=== PATIENT | female | born 1960 | race Caucasian/White ===

== ENCOUNTER 2017-07-15 08:23 | Emergency (ER) | payer OTHER ==
[2017-07-15 08:49] VITALS: BP 122/82
--- NOTE | 2017-07-15 09:41 | UC ---
Complaint Female HPI - HPI Summary HPI Summary: 56 yo WF p/w suprapubic pressure x 2-3 days, associated with urinary frequency and urgency, denies f/c - History Of Current Complaint Chief Complaint: UCGU Stated Complaint: URINARY Time Seen by Provider: 07/15/17 09:02 Hx Obtained From: Patient Hx Last Menstrual Period: n/a ?: Yes Onset/Duration: Sudden Onset Timing: Constant Severity Initially: Moderate Severity Currently: Moderate Pain Intensity: 5 Pain Scale Used: 0-10 Numeric Character: Sharp - Allergies/Home Medications Allergies/Adverse Reactions: Allergies Allergy/AdvReac Type Severity Reaction Status Date / Time Sulfa (Sulfonamide Allergy Unknown Verified 07/15/17 08:42 Antibiotics) Reaction Details PMH/Surg Hx/FS Hx/Imm Hx Previously Healthy: Yes Cardiovascular History: Hypertension - Surgical History Surgical History: Yes Surgery Procedure, Year, and Place: Right Knee Arthroscopy, 2016, [place]; Left Shoulder, 2015, [place]; Tonsillectomy as a child - Family History Known Family History: Positive: Cardiac Disease, Hypertension - Social History Alcohol Use: None Substance Use Type: None Smoking Status (MU): Never Smoked Tobacco Review of Systems Constitutional: Negative Skin: Negative Eyes: Negative ENT: Negative Respiratory: Negative Cardiovascular: Negative Gastrointestinal: Negative Genitourinary: Frequency, Urgency, Other - suprapubic pain Motor: Negative Neurovascular: Negative Musculoskeletal: Negative Neurological: Negative Psychological: Negative All Other Systems Reviewed And Are Negative: Yes Physical Exam Triage Information Reviewed: Yes Appearance: Well-Appearing Vital Signs: Initial Vital Signs Temp 37.2 C 07/15/17 08:39 Pulse 82 07/15/17 08:39 Resp 16 07/15/17 08:39 BP 122/82 07/15/17 08:39 Pulse Ox 99 07/15/17 08:39 Eye Exam: Normal ENT Exam: Normal Dental Exam: Normal Neck: Positive: Supple Respiratory Exam: Normal Cardiovascular Exam: Normal Cardiovascular: Positive: RRR Abdomen Description: Positive: Other: - suprapubic tenderness. Negative: CVA Tenderness (R), CVA Tenderness (L) Musculoskeletal Exam: Normal Neurological Exam: Normal Neurological: Positive: Alert Psychological Exam: Normal Skin Exam: Normal Complaint Female Dx - Course Course Of Treatment: UA - 3+ blood and signs of UTI, will tx with macrobid - Differential Dx/Diagnosis Provider Diagnoses: acute cystitis Discharge - Sign-Out/Discharge Documenting (check all that apply): Discharge/Admit/Transfer - Discharge Plan Condition: Stable Disposition: HOME Prescriptions: Nitrofurantoin Monohyd/M-Cryst [Macrobid 100 mg Capsule] 100 mg PO BID 7 Days # 14 cap Patient Education Materials: Urinary Tract Infection in Women (ED) Referrals: Keara Craft MD [Primary Care Provider] - - Billing Disposition and Condition Condition: STABLE Disposition: HOME
== END 2017-07-15 09:30 | disposition home or self-care (01) ==
LOC: UCCORT 08:23
DX: N30.00 Acute cystitis without hematuria (principal); Z88.2 Allergy status to sulfonamides
CPT/HCPCS: 81003; 99212; G0463

== ENCOUNTER 2017-07-23 08:54 | Emergency (ER) | payer OTHER ==
[2017-07-23 09:17] VITALS: BP 139/52
[2017-07-23] MEDS ORDERED: Triamcinolone Acetonide* 40 MG/ML 1 ML VIAL IM ONE (09:48)
--- NOTE | 2017-07-23 09:52 | UC ---
Skin Complaint HPI - HPI Summary HPI Summary: 56 yo female with pruritic rash x 1 day worse on arms/legs has been doing yard work seen here 2 weeks ago with hematuria - History of Current Complaint Chief Complaint: UCRash Time Seen by Provider: 07/23/17 09:22 Stated Complaint: SKIN COMPLAINT Hx Obtained From: Patient Hx Last Menstrual Period: n/a Onset/Duration: Gradual Onset, Lasting Hours Timing: Constant Onset Severity: Mild Current Severity: Mild Pain Intensity: 0 Pain Scale Used: 0-10 Numeric Location: Diffuse Character: Pruritus, Redness, Raised Aggravating Factor(s): Nothing Alleviating Factor(s): Nothing - Allergy/Home Medications Allergies/Adverse Reactions: Allergies Allergy/AdvReac Type Severity Reaction Status Date / Time Sulfa (Sulfonamide Allergy Unknown Verified 07/23/17 09:09 Antibiotics) Reaction Details Home Medications: Home Medications Triamterene/HCTZ 37.5-25 MG* [Dyazide CAP*] 1 cap PO DAILY 07/23/17 [History Confirmed 07/23/17] Review of Systems Constitutional: Negative Skin: Rash Eyes: Negative ENT: Negative Respiratory: Negative Cardiovascular: Negative Gastrointestinal: Negative Genitourinary: Negative Motor: Negative Neurovascular: Negative Musculoskeletal: Negative Neurological: Negative Psychological: Negative Is Patient Immunocompromised?: No All Other Systems Reviewed And Are Negative: Yes PMH/Surg Hx/FS Hx/Imm Hx Previously Healthy: Yes - Surgical History Surgical History: Yes Surgery Procedure, Year, and Place: Right Knee Arthroscopy, 2016, [place]; Left Shoulder, 2015, [place]; Tonsillectomy as a child - Family History Known Family History: Positive: Cardiac Disease, Hypertension - Social History Alcohol Use: None Substance Use Type: None Smoking Status (MU): Never Smoked Tobacco Physical Exam Triage Information Reviewed: Yes Appearance: Well-Appearing, No Pain Distress, Well-Nourished Vital Signs: Initial Vital Signs Temp 97.9 F 07/23/17 09:12 Pulse 99 07/23/17 09:12 Resp 18 07/23/17 09:12 BP 139/52 07/23/17 09:12 Pulse Ox 97 07/23/17 09:12 Vital Signs Reviewed: Yes Eyes: Positive: Conjunctiva Clear ENT: Positive: Other - no intraoral lesions. Negative: Hearing grossly normal, Nasal congestion, Nasal drainage, Trismus, Muffled voice, Dental tenderness Neck: Positive: Supple, Nontender Respiratory: Positive: Lungs clear, Normal breath sounds, No respiratory distress Cardiovascular: Positive: RRR, No Murmur Musculoskeletal: Positive: ROM Intact, No Edema Neurological: Positive: Alert Psychological Exam: Normal Skin Exam: Other - muliple red papules arms and legs some in linear array Course/Dx - Course Course Of Treatment: ua-(+1) rbcs - Diagnoses Provider Diagnoses: contact dermatitis. microscopic hematuria Discharge - Sign-Out/Discharge Documenting (check all that apply): Discharge/Admit/Transfer - Discharge Plan Condition: Stable Disposition: HOME Patient Education Materials: Contact Dermatitis (ED), Hematuria (ED) Referrals: Keara Craft MD [Primary Care Provider] - 4 Days - Billing Disposition and Condition Condition: STABLE Disposition: HOME
== END 2017-07-23 10:22 | disposition home or self-care (01) ==
LOC: UCCORT 08:54
DX: L25.9 Unspecified contact dermatitis, unspecified cause (principal); R31.29 Other microscopic hematuria; Z88.2 Allergy status to sulfonamides
CPT/HCPCS: 81003; 96372; 99212; G0463; J3301

== ENCOUNTER 2019-01-23 08:55 | Emergency (ER) | payer OTHER ==
--- OUTSIDE RECORDS SUMMARY | 2019-01-23 09:06 | XMS REPORT | Continuity of Care Document ---
:1960 External Reference #:[id number] Author Name Keara Craft MD Address [address] [place] [id number] Care Team Providers Name Role Phone Keara Craft MD - Family Medicine Care Team Information Planer Tailer [phone] Problems Active Problems Provider Date Benign essential hypertension Onset: 03/27/2015 Edema Keara Craft MD Onset: 01/14/2015 Skin sensation disturbance Keara Craft MD Onset: 01/14/2015 Psoriasis Keara Craft MD Onset: 03/27/2015 Overweight Keara Craft MD Onset: 03/27/2015 Derangement of medial meniscus David Mendez M.D. Onset: 05/25/2016 Old tear of posterior horn of medial Hilda Ruano PA Onset: 07/29/2016 meniscus Localized, primary osteoarthritis Hilda Ruano PA Onset: 07/29/2016 Hematuria syndrome Jake Lobo FNP Onset: 07/28/2017 Note: Lab: 07/24/17 - Urine Dipstick Lab: 07/24/17 - Urine Culture negative Verruca vulgaris Keara Craft MD Onset: 11/16/2017 Screening for malignant neoplasm of colon John Felder MD Onset: 2017 Constipation John Felder MD Onset: 01/09/2018 Other hemorrhoids John Felder MD Onset: 01/09/2018 Adjustment disorder with depressed mood Keara Craft MD Onset: 11/02/2018 Social History Type Date Description Comments Sex Unknown Tobacco Use Start: Unknown Never Smoked Cigarettes Smoking Status Reviewed: 12/18/18 Never Smoked Cigarettes ETOH Use Currently consumes alcohol < 2 dr/yr Tobacco Use Start: Unknown Patient has never smoked Recreational Drug Use Never Used Drugs Exercise Type/Frequency Does not exercise Allergies, Adverse Reactions, Alerts Active Allergies Reaction Severity Comments Date Sulfa Drugs 01/14/2015 Medications Active Medications SIG Qnty Indications Ordering Provider Date Fluoxetine HCL 1 by mouth every 30caps F43.21 Keara Craft, 11/02/2018 (PMDD) night 20mg Capsules Lorazepam 1 tablet by mouth 60tabs Keara Craft, 10/03/2018 1mg Tablets 3x/day as needed for acute grief reaction Reference #: [id number] Triamterene/Hydrochl take one tablet by 90tabs R03.0 Keara Craft, 03/27 orothiazide mouth once daily 75-50mg in the morning Tablets Ibuprofen take one tablet by S46.012A Unknown 800mg mouth every 8 Tablets hours as needed History Medications Amoxicillin/Clavulanate 1 by mouth 20tabs Keara Craft, 11/16/2018 - Potassium twice a day 12/14/2018 875-125mg Tablets Amoxicillin/Clavulanate 1 by mouth 20tabs Keara Craft, 09/05/2018 - Potassium twice a day 11/02/2018 875-125mg Tablets Immunizations Description No Information Available Vital Signs Date Vital Result Comment 12/14/2018 9:09am BP Systolic 120 mmHg BP Diastolic 74 mmHg Body Temperature 98.3 F Heart Rate 83 /min Respiratory Rate 18 /min Height 64.75 inches 5'4.75" Weight 234.00 lb BMI (Body Mass Index) 39.2 kg/m2 BSA (Body Surface Area) 2.11 m2 [place] body weight in kilograms 56 kg O2 % BldC Oximetry 97 % 11/02/2018 3:11pm BP Systolic 126 mmHg BP Diastolic 80 mmHg Height 65.25 inches 5'5.25" Weight 233.00 lb BMI (Body Mass Index) 38.5 kg/m2 BSA (Body Surface Area) 2.12 m2 [place] body weight in kilograms 57 kg Results Test Date Facility Test Result H/L Range Note Urine Dipstick 12/14/2018 [facility] Ua Color yellow Yellow Ua Clarity clear Clear Ua Leuko negative Negative Ua Nitrite negative Negative Ua Urobilinogen 0.2 0.2 - 1.0 E.U./dL Ua Protein negative Negative Ua PH 7.5 6.5-7.5 Ua Blood negative Negative Ua Specific [place] 1.015 1.010-1.030 Ua Ketones negative Negative Ua Bilirubin negative Negative Ua Glucose negative Negative Urine Dipstick 11/02/2018 [facility] Ua Leuko - Negative Ua Nitrite - Negative Ua Urobilinogen .2 0.2 - 1.0 E.U./dL Ua Protein - Negative Ua PH 7 6.5-7.5 Ua Blood 1+ High Negative Ua Specific [place] 1.015 1.010-1.030 Ua Ketones - Negative Ua Bilirubin - Negative Ua Glucose - Negative Procedures Date Code Description Status 12/14/2018 [id number] Mammogram Completed 11/16/2018 [id number] Colonoscopy Completed 11/02/2018 65157 Brief Emotional/Behav Assessment W/ Scoring Doc Per Completed Standard Inst 03/06/2017 [id number] Bone Mineral Density Test Completed Medical Devices Description No Information Available Encounters Type Date Location Provider Dx Diagnosis Office Visit 12/14/2018 [facility] Keara Craft, Z00.00 Encntr for general 9:00a Juancho YEPEZ MD adult medical exam w/o abnormal findings F43.21 Adjustment disorder with depressed mood K57.30 Dvrtclos of lg int w/o perforation or abscess w/o bleeding N60.02 Solitary cyst of left breast Office Visit 11/02/2018 3:00p [facility] Keara Craft F43.21 Adjustment Juancho YEPEZ MD disorder with depressed mood Assessments Date Code Description Provider 12/14/2018 Z00.00 Encounter for general adult medical examination Keara Craft MD without abnormal findings 12/14/2018 F43.21 Adjustment disorder with depressed mood Keara Craft MD 12/14/2018 K57.30 Diverticulosis of large intestine without Keara Craft MD perforation or abscess without bleeding 12/14/2018 N60.02 Solitary cyst of left breast Keara Craft MD 11/02/2018 F43.21 Adjustment disorder with depressed mood Keara Craft MD Plan of Treatment Future Appointment(s):06/10/2019 8:30 am - Keara Craft MD at [facility] Juancho YEPEZ12/14/2018 - Keara Craft MDZ00.00 Encounter for general adult medical examination without abnormal findingsComments:INCREASE EXERCISE; WORK TOWARDS IDEAL WEIGHT;DAILY SUNSCREEN FOR SKIN CANCER PREVENTION;CALCIUM INTAKE DISCUSSEDPAP/PELVIC : UP TO DATE; MAMMOGRAM AND SONOGRAM LEFT BREAST WILL BE ORDERED FOR AFTER 12/22/18; LABS ORDERED FASTING;[facility] PR[facility]: IN YYCJEO33.21 Adjustment disorder with depressed moodComments:YOU ARE BETTER; I'M GLAD YOU WENT TO [place]. PLAN MORE TRIPS AND GO!LORAZEPAM NEEDED.Follow up:4 MOK57.30 Diverticulosis of large intestine without perforation or abscess without bleedingComments:FROM YOUR COLONOSCOPY;BASICALLY , AVOID [id number] Solitary cyst of left breastComments:PLAN ABOVE Functional Status Functional Condition Comment Date Status Glasses Active Mental Status Description No Information Available Referrals Description No Information Available
[2019-01-23 09:23] VITALS: BP 131/62
--- NOTE | 2019-01-23 10:46 | UC ---
Respiratory Complaint HPI - HPI Summary HPI Summary: Patient is a 58-year-old female presenting with complaint of SOB at night for the past 3 nights and cough x1 month. Patient states she wakes up and feels like she "cant catch her breath." Notes that it lasts a few minutes and improves some with mouth breathing. Notes mild dry cough. Notes post nasal drip and h/o seasonal allergies. Denies SOB during the day. Denies wheezing. Denies chest pain. Denies fever and chills. Denies decreased appetite and fatigue. Patient is not a smoker. Patient states she is concerned for cancer because her in September from cancer that initially presented as a mild dry cough. Patient notes she has been in mourning since and "cries every day." States she takes ativan as needed "a couple times a week" for anxiety since her 's passing. - History of Current Complaint Chief Complaint: UCGeneralIllness Stated Complaint: COUGH,SOB Hx Obtained From: Patient Hx Last Menstrual Period: n/a Pain Intensity: 0 - Allergies/Home Medications Allergies/Adverse Reactions: Allergies Allergy/AdvReac Type Severity Reaction Status Date / Time Sulfa (Sulfonamide Allergy Unknown Verified 01/23/19 09:15 Antibiotics) Reaction Details Home Medications: Home Medications LORazepam [Ativan 1 MG TAB] 1 tab PO ONCE PRN 01/23/19 [History Confirmed ] PMH/Surg Hx/FS Hx/Imm Hx Previously Healthy: Yes - Surgical History Surgical History: Yes Surgery Procedure, Year, and Place: Right Knee Arthroscopy, 2016, [place];. Left Shoulder, 2015, [place];. Tonsillectomy as a child - Family History Known Family History: Positive: Cardiac Disease, Hypertension - Social History Alcohol Use: None Substance Use Type: None Smoking Status (MU): Never Smoked Tobacco Review of Systems All Other Systems Reviewed And Are Negative: Yes Constitutional: Positive: Negative ENT: Positive: Nasal Discharge - PND, Sinus Congestion. Negative: Sore Throat, Ear Ache Respiratory: Positive: Shortness Of Breath - at night, Cough - dry Cardiovascular: Positive: Negative Gastrointestinal: Positive: Negative Musculoskeletal: Positive: Negative Neurological: Positive: Negative Psychological: Positive: Anxious, Depressed Physical Exam Triage Information Reviewed: Yes Appearance: Well-Appearing, No Pain Distress, Well-Nourished Vital Signs: Initial Vital Signs Temp 99.6 F 01/23/19 09:16 Pulse 78 01/23/19 09:16 Resp 16 01/23/19 09:16 BP 131/62 01/23/19 09:16 Pulse Ox 97 01/23/19 09:16 Vital Signs Reviewed: Yes Eyes: Positive: Conjunctiva Clear ENT: Positive: Hearing grossly normal, Nasal drainage - PND noted, TMs normal, Uvula midline. Negative: Pharyngeal erythema, Tonsillar swelling, Tonsillar exudate Neck exam: Normal Neck: Positive: Supple, Nontender, No Lymphadenopathy Respiratory Exam: Normal Respiratory: Positive: Lungs clear, Normal breath sounds, No respiratory distress. Negative: Crackles, Rhonchi, Stridor, Wheezing Cardiovascular Exam: Normal Cardiovascular: Positive: RRR Neurological: Positive: Alert Psychological: Positive: Age Appropriate Behavior Skin Exam: Normal Diagnostics - Radiology chest Radiology Interpretation Completed By: Radiologist Summary of Radiographic Findings: IMPRESSION: NO EVIDENCE FOR ACTIVE CARDIOPULMONARY DISEASE. Respiratory Course/Dx - Course Course Of Treatment: Patient CXR negative. Educated on allergies or bronchitis as source of cough. Also discussed anxiety attacks as possible source of SOB at night. Instructed patient to take otc allergy mediation. Instructed patient to follow up with pcp if sob attacks continue or go to ED if they worsen. Patient voiced understanding and agreed with treatment plan. - Differential Dx/Diagnosis Provider Diagnosis: Waking at night short of breath, Persistent dry cough Discharge ED - Sign-Out/Discharge Documenting (check all that apply): Patient Departure All imaging exams completed and their final reports reviewed: Yes - Discharge Plan Condition: Stable Disposition: HOME Prescriptions: Guaifenesin/Pseudoephedrne HCl [Mucinex D ER 1,200-120 mg Tab] 1 each PO DAILY PRN #[id number] tab.er.[id number] PRN Reason: Congestion Patient Education Materials: Dyspnea (ED), Postnasal Drip (DC) Referrals: Keara Craft MD [Primary Care Provider] - If Needed Additional Instructions: As discussed, your chest xray was normal today. You may take mucinex to help reduce mucus production. You may also use Flonase spray and over the counter allergy medication, such as Zyrtec, to help alleviate nasal congestion. Follow up with your primary care doctor if your symptoms do not resolve within 7 days. Go to the Emergency Room if your symptoms worsen, including difficulty breathing , chest pain, and fever. - Billing Disposition and Condition Condition: STABLE Disposition: Home
== END 2019-01-23 11:15 | disposition home or self-care (01) ==
LOC: UCCORT 08:55
DX: R05 Cough (principal); R06.02 Shortness of breath; J34.89 Other specified disorders of nose and nasal sinuses; F41.9 Anxiety disorder, unspecified; Z88.2 Allergy status to sulfonamides; Z79.899 Other long term (current) drug therapy
CPT/HCPCS: 71046; 99212; G0463

== ENCOUNTER 2019-04-30 07:37 | Emergency (ER) | payer OTHER ==
--- OUTSIDE RECORDS SUMMARY | 2019-04-30 08:18 | XMS REPORT | Continuity of Care Document ---
:1960 External Reference #:[id number] Author Name Keara Craft MD Address [address] [place] [id number] Care Team Providers Name Role Phone Keara Craft MD - Family Medicine Care Team Information Gas Fitter [phone] Problems Active Problems Provider Date Benign essential [...] depressed mood Keara Craft MD Onset: 11/02/2018 Disorder of shoulder Keara Craft MD Onset: 02/15/2019 Social History Type Date Description Comments Sex Unknown Tobacco Use Start: Unknown Never Smoked Cigarettes Smoking Status Reviewed: 03/27/19 Never Smoked Cigarettes ETOH Use Currently consumes alcohol < 2 dr/yr Tobacco Use Start: Unknown Patient has never smoked Recreational Drug Use Never Used Drugs Exercise Type/Frequency Does not exercise Allergies, Adverse Reactions, Alerts Active Allergies Reaction Severity Comments Date Sulfa Drugs 01/14/2015 Medications Active Medications SIG Qnty Indications Ordering Date Provider Trazodone HCL 1/2 tablet by 30tabs F43.21 Keara Craft, 02/15/2019 100mg mouth at bedtime MD Tablets for 5 days, then increase to 1 whole tab at bedtime Lorazepam 1 tablet by mouth 60tabs Keara Craft, 10/03/2018 1mg Tablets 3x/day as needed for anxiety Reference #: [id number] Triamterene/Hydrochl take one tablet by 90tabs R03.0 Keara Craft, 03/27 orothiazide mouth once daily 75-50mg in the morning Tablets Ibuprofen take one tablet by 100tabs S46.012A Keara Craft, 800mg mouth every 8 MD Tablets hours with food or snack as needed for pain History Medications Fluoxetine HCL 1 cap by mouth 30caps Keara Craft, 01/10/2019 - (PMDD) every day along 02/15/2019 10mg Capsules with 20 mg dose Fluoxetine HCL 1 cap by mouth 30caps Keara Craft, 01/10/2019 - (PMDD) every day along 02/15/2019 20mg Capsules with the 10 mg dose Amoxicillin/Clavulan 1 by mouth 20tabs Keara Craft, 11/16/2018 - ate Potassium twice a day 12/14/2018 875-125mg Tablets Fluoxetine HCL 1 1/2 by mouth 45caps F43.21 Keara Craft, 11/02/2018 - (PMDD) every night 01/10/2019 20mg Capsules Immunizations Description No Information Available Vital Signs Date Vital Result Comment 03/27/2019 5:20pm BP Systolic Sitting Left Arm 126 mmHg BP Diastolic Sitting Left Arm 76 mmHg Body Temperature 99.1 F Heart Rate 80 /min Respiratory Rate 18 /min Height 64.75 inches 5'4.75" Weight 239.00 lb BMI (Body Mass Index) 40.1 kg/m2 BSA (Body Surface Area) 2.13 m2 [place] body weight in kilograms 56 kg O2 % BldC Oximetry 97 % 02/15/2019 10:44am BP Systolic 130 mmHg BP Diastolic 82 mmHg Body Temperature 98.3 F Heart Rate 69 /min Respiratory Rate 16 /min Height 64.75 inches 5'4.75" Weight 236.00 lb BMI (Body Mass Index) 39.6 kg/m2 BSA (Body Surface Area) 2.12 m2 [place] body weight in kilograms 56 kg O2 % BldC Oximetry 98 % Results Test Acquired Date Facility Test Result H/L Range Note Xray 03/19/2019 [facility] - Radiology Ultrasound, Breast <pending> [address] Unilateral [place], [place] [id number] [phone] Mammography, Screening Bilateral Mammogram <pending> Urine Dipstick 02/15/2019 [facility] Ua Color yellow Yellow Ua Clarity clear Clear Ua Leuko neg Negative Ua Nitrite neg Negative Ua Urobilinogen 3.5 High 0.2 - 1.0 E.U./dL Ua Protein neg Negative Ua PH 6.5 6.5-7.5 Ua Blood pos Negative Ua Specific [place] 1.020 1.010-1.030 Ua Ketones neg Negative Ua Bilirubin neg Negative Ua Glucose neg Negative Urine Dipstick 12/14/2018 [facility] Ua Color yellow Yellow Ua Clarity clear Clear Ua Leuko negative Negative Ua Nitrite negative Negative Ua Urobilinogen 0.2 0.2 - 1.0 E.U./dL Ua Protein negative Negative Ua PH 7.5 6.5-7.5 Ua Blood negative Negative Ua Specific [place] 1.015 1.010-1.030 Ua Ketones negative Negative Ua Bilirubin negative Negative Ua Glucose negative Negative Urine Dipstick 11/02/2018 [facility] Ua Leuko - Negative Ua Nitrite - Negative Ua Urobilinogen .2 0.2 - 1.0 E.U./dL Ua Protein - Negative Ua PH 7 6.5-7.5 Ua Blood 1+ High Negative Ua Specific [place] 1.015 1.010-1.030 Ua Ketones - Negative Ua Bilirubin - Negative Ua Glucose - Negative Procedures Date Code Description Status 12/14/2018 18723 Brief Emotional/Behav Assessment W/ Scoring Doc Per Completed Standard Inst 12/14/2018 [id number] Mammogram Completed 11/16/2018 [id number] Colonoscopy Completed 11/02/2018 44931 Brief Emotional/Behav Assessment W/ Scoring Doc Per Completed Standard Inst 03/06/2017 [id number] Bone Mineral Density Test Completed Medical Devices Description No Information Available Encounters Type Date Location Provider Dx Diagnosis Office Visit 03/27/2019 [facility] Keara Craft, S23.41xA Sprain of ribs, 4:30p Juancho YEPEZ MD initial encounter F43.21 Adjustment disorder with depressed mood Office Visit 02/15/2019 10:45a [facility] Keara Craft F43.21 Adjustment Juancho YEPEZ MD disorder with depressed mood R07.89 Other chest pain M75.42 Impingement syndrome of left shoulder B07.9 Viral wart, unspecified Office Visit 12/14/2018 9:00a [facility] Keara Craft, Z00.00 Encntr for Juancho YEPEZ MD general adult medical exam w/o abnormal findings F43.21 Adjustment disorder with depressed mood K57.30 Dvrtclos of lg int w/o perforation or abscess w/o bleeding N60.02 Solitary cyst of left breast Office Visit 11/02/2018 3:00p [facility] Keara Craft, F43.21 Adjustment Juancho YEPEZ MD disorder with depressed mood Assessments Date Code Description Provider 03/27/2019 S23.41xA Sprain of ribs, initial encounter Keara Craft MD 03/27/2019 F43.21 Adjustment disorder with depressed mood Keara Craft MD 02/15/2019 F43.21 Adjustment disorder with depressed mood Keara Craft MD 02/15/2019 R07.89 Other chest pain Keara Craft MD 02/15/2019 M75.42 Impingement syndrome of left shoulder Keara Craft MD 02/15/2019 B07.9 Viral wart, unspecified Keara Craft MD 12/14/2018 Z00.00 Encounter for general adult medical Keara Craft MD examination without abnormal findings 12/14/2018 F43.21 Adjustment disorder with depressed mood Keara Craft MD 12/14/2018 K57.30 Diverticulosis of large intestine without Keara Craft MD perforation or abscess without bleeding 12/14/2018 N60.02 Solitary cyst of left breast Keara Craft MD 11/02/2018 F43.21 Adjustment disorder with depressed mood Keara Craft MD Plan of Treatment Future Appointment(s):12/13/2019 9:00 am - Keara Craft MD at [facility] RD06/10/2019 8:30 am - Keara Craft MD at [facility] RD03/27/2019 - Keara Craft, MDS23.41xA Sprain of ribs, initial encounterNew Xrays:Ribs, Unilateral 2 Views, Ordered: 03/27/19Comments:Let's get xrays of ribs on both sides.You can use ibuprofen for the pain as needed, I have renewed this.Follow up:as alnbhnC21.21 Adjustment disorder with depressed moodComments:cont. on current regimen.I renewed your lorazepam.I still think you could benefit from counseling. Functional Status Functional Condition Comment Date Status Glasses Active Mental Status Description No Information Available Referrals Description No Information Available
[2019-04-30 08:26] VITALS: BP 128/82
--- NOTE | 2019-04-30 08:34 | UC ---
Throat Pain/Nasal Malachi HPI - HPI Summary HPI Summary: sinus pain / pressure x 10 days yellow / green nasal discharge, pnd cough , having low grade fever, chills, not improving with otc meds - History of Current Complaint Chief Complaint: UCRespiratory Time Seen by Provider: 04/30/19 08:28 Hx Obtained From: Patient Hx Last Menstrual Period: n/a Onset/Duration: Gradual Onset, Lasting Days - 10, Still Present Severity: Moderate Pain Intensity: 4 Cough: Nonproductive Associated Signs & Symptoms: Positive: Sinus Discomfort, Nasal Discharge, Fever. Negative: Wheezing, Vomiting, Rash - Allergies/Home Medications Allergies/Adverse Reactions: Allergies Allergy/AdvReac Type Severity Reaction Status Date / Time Sulfa (Sulfonamide Allergy Unknown Verified 04/30/19 08:18 Antibiotics) Reaction Details Home Medications: Home Medications Triamterene/HCTZ 37.5-25 MG* [Dyazide CAP*] 1 cap PO DAILY 07/23/17 [History Confirmed 04/30/19] LORazepam [Ativan 1 MG TAB] 1 tab PO ONCE PRN 01/23/19 [History Confirmed ] Amoxicillin/Clavulanate TAB* [Augmentin TAB 875*] 875 mg PO BID #20 tab [Rx] Ibuprofen 800 mg PO DAILY 04/30/19 [History Confirmed 04/30/19] PMH/Surg Hx/FS Hx/Imm Hx Cardiovascular History: Hypertension - Surgical History Surgical History: Yes Surgery Procedure, Year, and Place: Right Knee Arthroscopy, 2016, [place];. Left Shoulder, 2015, [place];. Tonsillectomy as a child - Family History Known Family History: Positive: Cardiac Disease, Hypertension - Social History Alcohol Use: None Substance Use Type: None Smoking Status (MU): Never Smoked Tobacco Review of Systems All Other Systems Reviewed And Are Negative: Yes Constitutional: Positive: Fever, Chills, Fatigue Skin: Positive: Negative Eyes: Positive: Negative ENT: Positive: Sore Throat, Ear Ache, Nasal Discharge Respiratory: Positive: Cough Cardiovascular: Positive: Negative Is Patient Immunocompromised?: No Physical Exam Triage Information Reviewed: Yes Appearance: Well-Appearing, No Pain Distress, Obese Vital Signs: Initial Vital Signs Temp 99.6 F 04/30/19 08:20 Pulse 85 04/30/19 08:20 Resp 22 04/30/19 08:20 BP 128/82 04/30/19 08:20 Pulse Ox 96 04/30/19 08:20 Vital Signs Reviewed: Yes Eye Exam: Normal Eyes: Positive: Conjunctiva Clear ENT: Positive: Normal ENT inspection, Hearing grossly normal, Pharynx normal, Nasal congestion, Nasal drainage, TMs normal, Sinus tenderness. Negative: TM bulging, TM dull, TM red Neck: Positive: Supple, Nontender, No Lymphadenopathy Respiratory: Positive: Chest non-tender, Lungs clear, Normal breath sounds Cardiovascular: Positive: RRR, No Murmur, Pulses Normal Skin Exam: Normal Throat Pain/Nasal Course/Dx - Differential Dx/Diagnosis Provider Diagnosis: Sinusitis Discharge ED - Sign-Out/Discharge Documenting (check all that apply): Patient Departure All imaging exams completed and their final reports reviewed: No Studies - Discharge Plan Condition: Stable Disposition: HOME Prescriptions: Amoxicillin/Clavulanate TAB* [Augmentin TAB 875*] 875 mg PO BID #20 tab Patient Education Materials: Sinusitis (ED) Referrals: Keara Craft MD [Primary Care Provider] - If Needed - Billing Disposition and Condition Condition: STABLE Disposition: Home
== END 2019-04-30 08:36 | disposition home or self-care (01) ==
LOC: UCCORT 07:37
DX: J32.9 Chronic sinusitis, unspecified (principal); R05 Cough; I10 Essential (primary) hypertension; E66.9 Obesity, unspecified; H92.09 Otalgia, unspecified ear; Z88.2 Allergy status to sulfonamides; Z79.899 Other long term (current) drug therapy
CPT/HCPCS: 99212; G0463